=== PATIENT | male | born 1955 | race Caucasian/White ===

== ENCOUNTER → 2017-04-25 | Outpatient (CLI) | payer BC ==
--- NOTE | 2017-04-25 12:12 | DIAGNOSTIC IMAGING REPORT ---
KUB HISTORY: 61 years-old Male N20.0 nephrolithiasis COMPARISON: PET CT 07/26/2017 TECHNIQUE: KUB radiograph FINDINGS: 4 mm calcification in the region of the left upper abdomen is compatible with nonspecific calcification of the lateral limb left adrenal gland seen on comparison PET CT. No definite nephrolithiasis identified. No calculi are seen along the course of either ureter. The bowel gas pattern is nonobstructive. There is no fracture. IMPRESSION: 1. No renal or ureteral calculi. 2. 4 mm calcification of the left adrenal gland again seen. The above report was generated using voice recognition software. It may contain grammatical, syntax or spelling errors. Electronically signed by: Nathan Zavala M.D. 04/25/2017 12:10 PM Dictated Date/Time: 04/25/2017 12:08 PM
== END | disposition home or self-care (01) ==
LOC: C.RAD 11:20
PROVIDERS: ATTEND Urology
DX: E27.49 Other adrenocortical insufficiency (principal)

== ENCOUNTER 2023-04-11 21:16 | Inpatient (IN) ==
[2023-04-11] MEDS ORDERED: NITROGLYCERIN 2% OINTMENT 30GM TUBE EXT ONE (22:05)
[2023-04-11] MEDS ORDERED: ASPIRIN 81 MG CHEW PO STA (22:05)
[2023-04-11] MEDS ORDERED: SODIUM CHLORIDE 0.9% 1000ML 1,000 ML IV SCH (22:15)
[2023-04-11 22:19] LABS: Basophils # (auto) 0.04 K/uL (0-0.2); Basophils % (auto) 0.5 %; Eosinophils # (auto) 0.08 K/uL (0-0.50); Hematocrit (blood only) 42.7 % (42.0-52.0); Hemoglobin 14.7 g/dl (14.0-18.0); Immature Granulocytes # (auto) 0.02 K/uL (0.01-0.20); Immature Granulocytes % (auto) 0.3 %; Lymphocytes # (auto) 1.51 K/uL (1.2-3.4); Lymphocytes % (auto) 19.3 %; Mean Corpuscular Hemoglobin 29.6 pg (25.0-34.0); Mean Corpuscular Hgb Conc 34.4 g/dL (32.0-36.0); Mean Corpuscular Volume 85.9 fL (80.0-100.0); Monocytes # (auto) 0.82 K/uL (0.11-0.59); Monocytes % (auto) 10.5 %; Neutrophils # (auto) 5.35 K/uL (1.40-6.50); Neutrophils % (auto) 68.4 %; Platelet Count 257 K/uL (130-400); RDW Coefficient of Variation 12.6 % (11.5-14.5); RDW Standard Deviation 38.9 fL (36.4-46.3); Red Blood Count 4.97 M/uL (4.70-6.10); White Blood Count 7.82 K/ul (4.8-10.8)
[2023-04-11 22:33] LABS: Prothrombin Time 10.6 Seconds (9.0-12.0)
[2023-04-11 22:46] LABS: Albumin Globulin Ratio 1.4 (0.9-2); Albumin Level 4.3 gm/dl (3.4-5.0); BUN Creatinine Ratio 17.3 (10-20); Bilirubin,Total 0.5 mg/dl (0.2-1.0); Calcium 9.4 mg/dl (8.6-10.3); Creatinine Clr Calc Pharmacy 76.1 ml/min; Est GFR (African American) 80.6 ml/min; Est GFR (Non-African American) 69.6 ml/min; Potassium 3.8 mmol/L (3.5-5.1); Total Protein 7.3 gm/dl (6.0-8.3)
--- NOTE | 2023-04-11 22:56 | Emergency Department Note ---
History of Present Illness General Chief complaint: Chest Pain Stated complaint: CHEST PRESSURE/DISCOMFORT,CLAMMY Time Seen by Provider: 04/11/23 21:54 History of Present Illness Maximum Pain Intensity: 2 This is a 67-year-old male presenting to the emergency department for evaluation of central chest pressure and clamminess for the past several hours. Patient may have had some waxing and waning symptoms over the past few days, but symptoms worsened tonight while he was outside with his . Patient has never had this happen before. There is a family history of early coronary artery disease. Patient recently had a kidney stone that required surgical removal. He seems to be recovering from this well. He did take Gaviscon at home without any improvement of symptoms. His discomfort is currently rated a 3/10. He does not endorse any back pain, neck pain, head pain, or shortness of breath. No recent travel history as he and his are expecting a new grandbaby this we ek. Patient has not had fevers or chills. Home Medications Medication Instructions Recorded Confirmed Type atorvastatin 10 mg tablet 10 mg PO QPM #90 tabs 02/02/23 04/11/23 Rx amlodipine 5 mg tablet 5 mg PO HS 03/28/23 04/11/23 History phenazopyridine 200 mg tablet 200 mg PO Q8H PRN pain #10 tabs 04/04/23 04/11/23 Rx (Pyridium) tamsulosin 0.4 mg capsule 0.4 mg PO HS #30 caps 04/04/23 04/11/23 Rx Allergies Allergy/AdvReac Type Severity Reaction Status Date / Time No Known Allergies Allergy Verified 04/11/23 22:11 Past Med/Surg History Medical History Atherosclerosis of coronary artery on CT 02/2023 Elevated lipoprotein(a) Hepatic steatosis History of kidney stones Hypercholesteremia Left ear hearing loss Obesity (BMI 30.0-34.9) Primary hypertension Surgical History History of colonoscopy with polypectomy last 05/2021 History of ear surgery left History of lithotripsy Family History Father Myocardial infarction, Onset Age: 55 Other Colorectal cancer No family history of adverse response to anesthesia Denies family history of Ovarian cancer Prostate cancer Breast cancer Social History Smoking Status: Never smoker Second Hand Exposure: No; Do You Dip or Chew Tobacco: Yes (chews (advised NPO)); Hx Alcohol Use: Yes Hx Substance Use: No Preferred Language: Kosovan Communication Ability: Effective Visual Impairment: No Limitations Hearing Ability: Normal Motion Picture Scene Builder Required: No Beliefs That Will Affect Care: None Current Living Situation: Spouse Feels Safe at Home: Yes Seatbelt Use: always Assistive Devices: Glasses Review of Systems A total of 10 systems reviewed and were otherwise negative Physical Exam Vital Signs Vital Signs - 24 hr 04/11/23 21:20 04/11/23 21:41 04/11/23 21:42 Temperature 36.7 C Temperature Source Temporal Artery Scan Pulse Rate 88 Pulse Rate [Bilateral Apical] 86 Pulse Rhythm Regular Pulse Strength Normal Respiratory Rate 18 20 Respiratory Effort / Characteristics Non-Labored Spontaneous Non-Labored Respiratory Depth Normal Normal Respiratory Pattern Regular Blood Pressure 158/98 H Blood Pressure [Left Arm] 176/101 H Blood Pressure Mean 118 Blood Pressure Mean [Left Arm] 126 Blood Pressure Position Sitting Pulse Oximetry 97 99 96 Oxygen Delivery Method Room Air Room Air Room Air Sepsis Recent Fever Within 48 Hours No Sepsis New/Unexplained Change in Mental Status N/A Sepsis Action Taken by Nursing No Action Required 04/11/23 21:28 04/11/23 22:31 Temperature Temperature Source Pulse Rate 80 Pulse Rate [Bilateral Apical] 72 Pulse Rhythm Pulse Strength Respiratory Rate 20 Respiratory Effort / Characteristics Non-Labored Respiratory Depth Respiratory Pattern Blood Pressure Blood Pressure [Left Arm] 175/93 H Blood Pressure Mean Blood Pressure Mean [Left Arm] 120 Blood Pressure Position Pulse Oximetry 96 Oxygen Delivery Method Room Air Sepsis Recent Fever Within 48 Hours Sepsis New/Unexplained Change in Mental Status Sepsis Action Taken by Nursing VITALS: Vitals are noted on the nurse's note and reviewed by myself. Vital signs stable. GENERAL: Well-developed, well-nourished, white male, who is in no acute distress and resting comfortably. Patient is cooperative with the examination. HEAD: Normocephalic atraumatic. NECK: Supple without nuchal rigidity. No lymphadenopathy. No thyromegaly. Cervical spine is nontender. HEART: Regular rate and rhythm without murmurs gallops or rubs. LUNGS: Clear to auscultation bilaterally without wheezes, rales or rhonchi. No retractions or accessory muscle use. ABDOMEN: Positive normal bowel sounds x 4. Soft, nontender, without masses or organomegaly. No guarding or rebound tenderness. MUSCULOSKELETAL: No muscle atrophy, erythema, or edema noted. Full range of motion in all extremities. Course Administered Medications Heparin Sodium/Dextrose (Heparin Sodium/Dextrose) 25,000 units in 500 mls @ 20 mls/hr IV .Q24H AUDI; Protocol Stop: 05/12/23 00:29 Last Admin: 04/12/23 00:49 Dose: 1,000 units/hr, 20 mls/hr Documented By: SHAHID Co-signed By: Nitroglycerin (Nitroglycerin 2% Ointment 30gm Tube) 1.5 inch EXT Q6 AUDI Stop: 05/12/23 00:29 Last Admin: 04/12/23 00:50 Dose: 1.5 inch Documented By: SHAHID Discontinued Medications Aspirin (Aspirin 81 Mg Chew) 324 mg PO NOW STA Stop: 04/11/23 22:06 Last Admin: 04/11/23 22:15 Dose: 324 mg Documented By: YELENA Heparin Sodium (Porcine) (Heparin Sod (Porcine) 1000 Unit/Ml) 4,000 units IV NOW ONE Stop: 04/12/23 00:23 Last Admin: 04/12/23 00:48 Dose: 4,000 units Documented By: SHAHID Co-signed By: Heparin Sodium/Dextrose (Heparin Iv Adult Wt-Based Low-Dose With Bolus Protocol) 1 each IV NOW STA; Protocol Stop: 04/12/23 00:08 Last Admin: 04/12/23 00:51 Dose: 1 each Documented By: SHAHID Sodium Chloride (Nss 1000ml) 1,000 mls @ 999 mls/hr IV .Q1H1M AUDI Stop: 04/11/23 23:15 Last Admin: 04/11/23 22:19 Dose: 999 mls/hr Documented By: YELENA Morphine Sulfate (Morphine Sulfate 2 Mg/Ml Carp) 2 mg IV NOW STA Stop: 04/11/23 23:10 Last Admin: 04/12/23 00:49 Dose: 2 mg Documented By: SHAHID Nitroglycerin (Nitroglycerin 2% Ointment 30gm Tube) 1 inch EXT NOW ONE Stop: 04/11/23 22:06 Last Admin: 04/11/23 22:15 Dose: 1 inch Documented By: ML Critical Care Time I have personally spent greater than 30 minutes of critical care time in the direct management of this patient. This includes bedside care, interpretation of diagnostic studies, and testing, discussion with consultants, patient, and family members, and other required patient management activities. This 30 minutes is in excess of all separately billable procedures. Medical Decision Making Differential Diagnosis Differential diagnosis includes, but is not limited to: Myocardial infarction, dysrhythmia, pericarditis, pneumothorax, aortic aneurysm/dissection, DVT/PE, anxiety, GERD, PUD, electrolyte imbalance, thyroid disorder, pneumonia, bronchitis, pancreatitis, and others Laboratory Data 04/11/23 21:38 04/11/23 21:38 Lab Results 04/11/23 04/11/23 04/11/23 Range/Units 21:38 21:38 21:38 WBC 7.82 (4.8-10.8) K/ul RBC 4.97 (4.70-6.10) M/uL Hgb 14.7 (14.0-18.0) g/dl Hct 42.7 (42.0-52.0) % MCV 85.9 (80.0-100.0) fL MCH 29.6 (25.0-34.0) pg MCHC 34.4 (32.0-36.0) g/dL RDW Std Deviation 38.9 (36.4-46.3) fL RDW Coeff of Venkatesh 12.6 (11.5-14.5) % Plt Count 257 (130-400) K/uL MPV 10.0 (9.4-12.4) fL Immature Gran % (Auto) 0.3 % Neut % (Auto) 68.4 % Lymph % (Auto) 19.3 % [place] % (Auto) 10.5 % Eos % (Auto) 1.0 % Baso % (Auto) 0.5 % Neut # (Auto) 5.35 (1.40-6.50) K/uL Lymph # (Auto) 1.51 (1.2-3.4) K/uL [place] # (Auto) 0.82 H (0.11-0.59) K/uL Eos # (Auto) 0.08 (0-0.50) K/uL Baso # (Auto) 0.04 (0-0.2) K/uL Immature Gran # (Auto) 0.02 (0.01-0.20) K/uL PT 10.6 (9.0-12.0) Seconds INR 1.0 (0.9-1.1) APTT 29.0 (21.0-31.0) Seconds PTT Ratio 1.0 Sodium 140 (136-145) mmol/L Potassium 3.8 (3.5-5.1) mmol/L Chloride 106 (98-107) mmol/L Carbon Dioxide 25 (21-32) mmol/L Anion Gap 9 (3-11) BUN 19 (6-23) mg/dl Creatinine 1.10 (0.6-1.4) mg/dl Est Cr Clr Drug Dosing 76.1 ml/min Est GFR ( Amer) 80.6 ml/min Est GFR (Non-Af Amer) 69.6 ml/min BUN/Creatinine Ratio 17.3 (10-20) Glucose 107 H (70-99(Fasting)) mg/dl Calcium 9.4 (8.6-10.3) mg/dl Total Bilirubin 0.5 (0.2-1.0) mg/dl AST 24 (13-39) U/L ALT 33 (7-52) U/L Alkaline Phosphatase 83 (34-104) U/L Troponin I High Sens 589.8 H* (0-20) pg/ml Total Protein 7.3 (6.0-8.3) gm/dl Albumin 4.3 (3.4-5.0) gm/dl Globulin 3.0 (2.5-4.0) gm/dl Albumin/Globulin Ratio 1.4 (0.9-2) Lipase 56 (11-82) U/L SARS-CoV-2, RNA, NAAT (NEGATIVE) 04/11/23 Range/Units 22:21 WBC (4.8-10.8) K/ul RBC (4.70-6.10) M/uL Hgb (14.0-18.0) g/dl Hct (42.0-52.0) % MCV (80.0-100.0) fL MCH (25.0-34.0) pg MCHC (32.0-36.0) g/dL RDW Std Deviation (36.4-46.3) fL RDW Coeff of Venkatesh (11.5-14.5) % Plt Count (130-400) K/uL MPV (9.4-12.4) fL Immature Gran % (Auto) % Neut % (Auto) % Lymph % (Auto) % [place] % (Auto) % Eos % (Auto) % Baso % (Auto) % Neut # (Auto) (1.40-6.50) K/uL Lymph # (Auto) (1.2-3.4) K/uL [place] # (Auto) (0.11-0.59) K/uL Eos # (Auto) (0-0.50) K/uL Baso # (Auto) (0-0.2) K/uL Immature Gran # (Auto) (0.01-0.20) K/uL PT (9.0-12.0) Seconds INR (0.9-1.1) APTT (21.0-31.0) Seconds PTT Ratio Sodium (136-145) mmol/L Potassium (3.5-5.1) mmol/L Chloride (98-107) mmol/L Carbon Dioxide (21-32) mmol/L Anion Gap (3-11) BUN (6-23) mg/dl Creatinine (0.6-1.4) mg/dl Est Cr Clr Drug Dosing ml/min Est GFR ( Amer) ml/min Est GFR (Non-Af Amer) ml/min BUN/Creatinine Ratio (10-20) Glucose (70-99(Fasting)) mg/dl Calcium (8.6-10.3) mg/dl Total Bilirubin (0.2-1.0) mg/dl AST (13-39) U/L ALT (7-52) U/L Alkaline Phosphatase (34-104) U/L Troponin I High Sens (0-20) pg/ml Total Protein (6.0-8.3) gm/dl Albumin (3.4-5.0) gm/dl Globulin (2.5-4.0) gm/dl Albumin/Globulin Ratio (0.9-2) Lipase (11-82) U/L SARS-CoV-2, RNA, NAAT NEGATIVE (NEGATIVE) ECG Data Additional Comments: EKG#1: Normal sinus rhythm @[address] & T wave abnormality, consider inferior ischemia ST & T wave abnormality, consider anterolateral ischemia When compared with ECG of 25-MAR-2023 08:48, Significant changes have occurred EKG#2 Normal sinus rhythm @[address] & T wave abnormality, consider anterolateral ischemia When compared with ECG of 11-APR-2023 21:28, Criteria for Septal infarct are no longer Present ST no longer depressed in Inferior leads ST no longer depressed in Anterolateral leads T wave inversion no longer evident in Inferior leads T wave inversion less evident in Lateral leads MDM Narrative Physical exam and history were performed. Nursing notes, EMR, and Medication List were personally reviewed. No social concerns were identified as barriers to patients care. Patient appears to have chest heaviness and clamminess bringing him to the ER. EKG was performed and appears remarkably different from EKG performed a few weeks ago. Patient's story is quite concerning for cardiac event. IV access was established and labs were obtained. Patient was given aspirin and Nitropaste was applied. She was gently hydrated with normal saline. Case was discussed with my attending. An order was placed for continuous cardiac monitoring. The monitor shows a rate of 72 with normal sinus rhythm. Patient's blood work is as above and was reviewed. He does not have a significantly elevated white blood cell count, gross anemia, bandemia, or significant electrolyte imbalance. Lipase and transaminases are not diagnostic. Patient does have an elevated troponin greater than 500. Repeat EKG was performed roughly 25 minutes after placement of Nitropaste and administration of aspirin. EKG does seem significantly improved after aspirin and Nitropaste. I did update the patient at bedside regarding his findings and voiced my concern for cardiac event. He does not seem to have any contraindications for heparinization, and heparin was ordered. Case was discussed with on-call hospitalist team who agreed to evaluate the patient here in the ER. Please see their dictation for further patient course, plan, and disposition. The chart was completed utilizing [email or web address] Speech Voice Recognition Software. Grammatical errors, random word insertions, pronoun errors, and incomplete sentences are an occasional consequence of this system due to software limita tions, ambient noise, and hardware issues. Any formal questions or concerns about the content, text, or information contained within the body of this dictation should be directly addressed to the provider for clarification. . Impression & Plan NSTEMI (non-ST elevated myocardial infarction) Discharge Plan Visit Data Chief Complaint: Chest Pain Stated Complaint: CHEST PRESSURE/DISCOMFORT,CLAMMY ED Provider: Chang Jimenez ED Midlevel Provider: Omero Brown Discharge Problem: NSTEMI (non-ST elevated myocardial infarction) Discharge Instructions Interventions: ED Discharge Assessment Last Done: 04/12/23 00:46
[2023-04-11] MEDS ORDERED: Heparin IV Adult Wt-Based Standard WITH Bolus Protocol IV STA (23:08)
[2023-04-11 23:09] LABS: Troponin I High Sensitivity 589.8 pg/ml (0-20)
[2023-04-11] MEDS ORDERED: MoRPHine SULFATE 2 MG/ML CARP IV STA (23:09)
[2023-04-11] MEDS ORDERED: HEPARIN SOD (PORCINE) 1000 UNIT/ML IV ONE (23:23)
--- NOTE | 2023-04-11 23:26 | History & Physical Report ---
Date of Service April 11, 2023 Assessment & Plan (1) NSTEMI (non-ST elevated myocardial infarction): Plan: Bernabe is a 67-year-old male with a past medical history of hyperlipidemia, hypertension, BMI 31.8, recent cystoscopy and laser destruction of left ureteral stone with basket retrieval 04/04/2023, early family history of CAD who presented to the ER for intermittent and recurrent central chest pressure with clamminess/sweating. Patient has had intermittent chest pain over the last several days, this afternoon pain significantly worsened with a large amount of sweating which prompted him to be seen in the ER. Admitted for NSTEMI. NSTEMI 3/10 pain with intermittent angina in the prior week. Worsened with a glass of wine evening of admission and with diaphoresis prompting him to be seen in the ER. At time of evaluation pain is "almost completely gone" post nitro and morphine EKG initially with inferior/anterolateral depressions, depressions did improve following nitro and fluids. Initial troponin 589.8 Received full dose aspirin while in ER. Continued on Nitropaste Patient heparinized for NSTEMI Cardiology consulted Echo pending Troponin trended Atorvastatin increased to 40 mg Primary hypertension Patient on home amlodipine with general BP less than 130/80. Switch to metoprolol to tartrate on admission. Hepatic steatosis Noted, patient alcohol intake reduced as outpatient and with active weight loss efforts Ureterolithiasis Improved following lithotripsy/basket retrieval 04/04/2023 DVT prophylaxis: Heparinized CODE STATUS: Full code Disposition: PCU Diet: N.p.o. (2) Atherosclerosis of coronary artery: (3) Hepatic steatosis: (4) Hypercholesteremia: (5) Primary hypertension: (6) Obesity (BMI 30.0-34.9): History of Present Illness Primary Care Provider: Kathy Beach MD Bernabe is a 67-year-old male with a past medical history of hyperlipidemia, hypertension, BMI 31.8, recent cystoscopy and laser destruction of left ureteral stone with basket retrieval 04/04/2023, early family history of CAD who presented to the ER for intermittent and recurrent central chest pressure with clamminess/sweating. Patient has had intermittent chest pain over the last several days, this afternoon pain significantly worsened with a large amount of sweating which prompted him to be seen in the ER. On ER evaluation discomfort 3/10 without back pain or lightheadedness/dizziness. Initial EKG with inferior lateral ST depressions which improved following nitro. Initial troponin is elevated at 589. Chest pain is improved following nitro and morphine administration. Jose reports he had kidney stones taken out last tuesday. He reports he went through a bunch of tests beforehand and 'felt OK'. Reports he has had kideny stones before 'but this one hurt and knocked the shit out of me.' After the last 3-4 days has had intermittent substernal chest pain. Went away with rest. Not really sure why the pain would come on. Did not note any association with exercise or going up stairs, seemed to come and go on it sown. No shortness of breath with pain, but did have sweating episodes with it tonight (no sweating with it prior). Today they were sitting at the hike and after half a glass of wine has bad pain in his chest and was very sweaty/clammy. Given worsened symptoms and sweating, and early family history, came to the ER for evaluation. Prior to this week was able to to walk and go up stairs without chest pain. No anginal symptoms up until this past week. At tiem of bedside evaluation no shortness of breath. chest pain 'just almost completely gone.' No history of heart disease. No hx DM. Father with CAD. Passed at age 56, started having heart problems ~age 52. No history of DM, was a heavy smoker. No other FHx heart disease Medical History: Reviewed Medications: Reviewed Surgical History: Reviewed Family history: Reviewed Allergies: Reviewed Social History: Chews tobacco, 1 can per 2 days. No cigarette use. Etoh 1-2 glass a night at least. Went ETOH free for a few days last week before the kidney stone, no withdrawal Code Status: Full Allergies Allergy/AdvReac Type Severity Reaction Status Date / Time No Known Allergies Allergy Verified 04/11/23 22:11 Home Medications Medication Instructions Recorded Confirmed Type atorvastatin 10 mg tablet 10 mg PO QPM #90 tabs 02/02/23 04/11/23 Rx amlodipine 5 mg tablet 5 mg PO HS 03/28/23 04/11/23 History phenazopyridine 200 mg tablet 200 mg PO Q8H PRN pain #10 tabs 04/04/23 04/11/23 Rx (Pyridium) tamsulosin 0.4 mg capsule 0.4 mg PO HS #30 caps 04/04/23 04/11/23 Rx Past Med/Surg History Medical History Atherosclerosis of coronary artery on CT 02/2023 Elevated lipoprotein(a) Hepatic steatosis History of kidney stones Hypercholesteremia Left ear hearing loss Obesity (BMI 30.0-34.9) Primary hypertension Surgical History History of colonoscopy with polypectomy last 05/2021 History of ear surgery left History of lithotripsy Family History Father Myocardial infarction, Onset Age: 55 Other Colorectal cancer No family history of adverse response to anesthesia Denies family history of Ovarian cancer Prostate cancer Breast cancer Social History Smoking Status: Never smoker Second Hand Exposure: No; Do You Dip or Chew Tobacco: Yes (chews (advised NPO)); Hx Alcohol Use: Yes Hx Substance Use: No Preferred Language: Finnish Communication Ability: Effective Visual Impairment: No Limitations Hearing Ability: Normal Bottle Labeler Required: No Beliefs That Will Affect Care: None Current Living Situation: Spouse Feels Safe at Home: Yes Seatbelt Use: always Assistive Devices: Glasses Review of Systems Review of Systems: All systems reviewed & are unremarkable except as noted in HPI & below Physical Exam Physical Exam: General: A&Ox3. NAD. Cooperative. HEENT: Atraumatic, normocephalic. Vision/hearing intact. PERLAA. Pulm: CTAB A&P. -wheezes, -rales, -rhonchi. Symmetrical chest rise. No increased work of breathing. No respiratory distress. No CP on palpation. Cardiac: RRR, -mrg. Radial pulses intact and symmetrical. no JVD. Abdominal: Nontender, nondistended, soft. BS present. Ext: No edema. Warm, dry. Sensation/strength intact in all 4 extremities and symmetrical. Results & Data Results & Data Vital Signs (Past 12 Hours) Vital Signs Temp Pulse Pulse Resp BP BP Pulse Ox 04/11/23 22:31 72 20 175/93 H 96 04/11/23 21:28 80 04/11/23 21:42 86 20 176/101 H 96 04/11/23 21:41 99 04/11/23 21:20 36.7 C 88 18 158/98 H 97 O2 Del Method 04/11/23 22:31 Room Air 04/11/23 21:28 04/11/23 21:42 Room Air 04/11/23 21:41 Room Air 04/11/23 21:20 Room Air PG Care Time/CCT Total # of Minutes Spent Total Time Spent with Patient: Total time spent is greater than 50% in coordination of care (as documented) at patient's floor/unit and/or counseling patient: Coding Level of Care Code 83689 INT INP/OBS CARE 375MIN Diagnoses NSTEMI (non-ST elevated myocardial infarction) I21.4 Atherosclerosis of coronary artery I25.10 Hepatic steatosis K76.0 Hypercholesteremia E78.00 Primary hypertension I10 Obesity (BMI 30.0-34.9) E66.9
[2023-04-11] MEDS ORDERED: HEPARIN SODIUM/DEXTROSE 25,000 UNITS/500 ML BAG IV SCH (23:30)
[2023-04-12] MEDS ORDERED: Heparin IV Adult Wt-Based Low-Dose WITH Bolus Protocol IV STA (00:07)
[2023-04-12] MEDS ORDERED: HEPARIN SOD (PORCINE) 1000 UNIT/ML IV ONE ×2 (00:15→00:22)
[2023-04-12] MEDS ORDERED: HEPARIN SODIUM/DEXTROSE 25,000 UNITS/500 ML BAG IV SCH (00:30)
[2023-04-12] MEDS ORDERED: MoRPHine SULFATE 2 MG/ML CARP IV PRN (00:39)
[2023-04-12] MEDS ORDERED: POLYETHYLENE (MIRALAX) 17 GM PACK PO PRN (00:46)
[2023-04-12] MEDS ORDERED: NITROGLYCERIN SL 0.4 MG/TAB TAB SL PRN (00:46)
[2023-04-12] MEDS ORDERED: ACETAMINOPHEN 325 MG TAB PO PRN (00:46)
[2023-04-12] MEDS: NITROGLYCERIN 2% OINTMENT 30GM TUBE EXT SCH ×4 (00:50→18:22)
--- NOTE | 2023-04-12 06:59 | XRay Report ---
XR chest 1V portable CLINICAL HISTORY: Chest pain, nonspecific COMPARISON STUDY: Chest radiograph March 25, 2023. Chest CT March 04, 2023. FINDINGS: Lung volumes are normal. Lungs are clear. There is no pneumothorax or pleural effusion. Car diomegaly is unchanged. Mediastinal contours are normal. There is no evidence for pulmonary edema. IMPRESSION: No acute cardiopulmonary findings. No change in appearance of the chest. ACT 112: Negative or not required by law. Electronically signed by: Nakul Bates M.D. 04/12/2023 6:57 AM
[2023-04-12 07:26] LABS: Basophils # (auto) 0.05 K/uL (0-0.2); Basophils % (auto) 0.7 %; Eosinophils # (auto) 0.11 K/uL (0-0.50); Eosinophils % (auto) 1.6 %; Hematocrit (blood only) 38.3 % (42.0-52.0); Hemoglobin 13.4 g/dl (14.0-18.0); Immature Granulocytes # (auto) 0.02 K/uL (0.01-0.20); Immature Granulocytes % (auto) 0.3 %; Lymphocytes % (auto) 25.3 %; Mean Corpuscular Hemoglobin 29.8 pg (25.0-34.0); Mean Corpuscular Volume 85.3 fL (80.0-100.0); Mean Platelet Volume 9.6 fL (9.4-12.4); Monocytes # (auto) 0.66 K/uL (0.11-0.59); Monocytes % (auto) 9.8 %; Neutrophils # (auto) 4.17 K/uL (1.40-6.50); Neutrophils % (auto) 62.3 %; Platelet Count 226 K/uL (130-400); RDW Coefficient of Variation 12.7 % (11.5-14.5); RDW Standard Deviation 39.6 fL (36.4-46.3); Red Blood Count 4.49 M/uL (4.70-6.10); White Blood Count 6.71 K/ul (4.8-10.8)
[2023-04-12 07:46] LABS: Albumin Globulin Ratio 1.5 (0.9-2); Albumin Level 3.5 gm/dl (3.4-5.0); BUN Creatinine Ratio 18.1 (10-20); Bilirubin,Total 0.4 mg/dl (0.2-1.0); Calcium 8.9 mg/dl (8.6-10.3); Creatinine Clr Calc Pharmacy 89.1 ml/min; Est GFR (African American) 97.5 ml/min; Est GFR (Non-African American) 84.2 ml/min; Globulin 2.4 gm/dl (2.5-4.0); Potassium 3.7 mmol/L (3.5-5.1); Total Protein 5.9 gm/dl (6.0-8.3)
--- NOTE | 2023-04-12 07:49 | Hospitalist Progress Note ---
Date of Service April 12, 2023 Assessment & Plan (1) NSTEMI (non-ST elevated myocardial infarction): Plan: Bernabe is a 67-year-old male with a past medical history of hyperlipidemia, hypertension, BMI 31.8, recent cystoscopy and laser destruction of left ureteral stone with basket retrieval 04/04/2023, early family history of CAD who presented to the ER for intermittent and recurrent central chest pressure with clamminess/sweating. Patient has had intermittent chest pain over the last several days, this afternoon pain significantly worsened with diaphoresis which prompted him to be seen in the ER. Admitted for NSTEMI. NSTEMI -11/26 pain with intermittent angina in the prior week. Worsened with a glass of wine evening of admission and with diaphoresis prompting him to be seen in the ER. At time of evaluation pain is "almost completely gone" post nitro and morphine. -EKG initially with inferior/anterolateral depressions, improved with nitro and fluids. -Initial troponin 589.8. Increased to 1481.6, then 5702.6 on serial labs. -S/p aspirin 324 mg x 1 while in ER. Continued on Nitropaste. Started on heparin. -A.m. echocardiogram ordered: Normal LV size, systolic function. EF = 55-60%. Small area of mid and distal anterior LV wall akinesis. -Cardiology consulted: PCI performed this afternoon for placement of drug- eluting stent. * Atorvastatin 40 mg * Aspirin 81 mg every morning * Metoprolol succinate 25 mg every morning * Nitro-Derm patch every 6 hours; SL nitroglycerin 0.4 mg Q5M as needed * Brilinta 90 mg p.o. twice daily HTN -Chronic; managed on amlodipine with home BP mostly <130/80. * Home amlodipine stopped. * Awaiting cardiology recommendations but will likely initiate ARB (losartan 25 mg). * Discharge home with either telmisartan or olmesartan (longer half-life). Hepatic steatosis -Noted; managed outpatient with lifestyle changes (limit alcohol intake, active weight loss efforts) -Fib 4 score: 1.71 points (advanced fibrosis excluded; Ama stage II-III) * LFT's, transaminases at goal currently. No need to trend. Ureterolithiasis -Improved following lithotripsy/basket retrieval 04/04/2023 * Continue to monitor for renal colic. Code: Full code Dispo: PCU FEN/GI: Heart healthy DVT Prophylaxis: None (s/p cath) PT/OT: No Consults: Cardiology Case Management: No (2) Atherosclerosis of coronary artery: (3) Hepatic steatosis: (4) Hypercholesteremia: (5) Primary hypertension: (6) Obesity (BMI 30.0-34.9): Admission and Anticipated Discharge Date Admission Date: April 11, 2023 Supervising Physician Co-Signing Physician Notes Resident Physician Supervision Note: I independently interviewed and examined the patient and verified the contreras history and physical, reviewed labs and image studies and agree with resident findings and care plan. Subjective Patient is resting comfortably in ER bed on arrival this morning. He denies chest pain, shortness of breath, abdominal pain, or pedal edema. Per patient, captain assistant has yet to stop in to see him. He has no questions or concerns at this time. Review of Systems Review of Systems: All systems reviewed & are unremarkable except as noted in HPI & below Physical Exam Physical Exam: General: No acute distress HEENT: PERRLA. Normal conjunctiva, anicteric sclera. Oropharynx normal. Respiratory: Normal respiratory effort, CTABL. Cardiovascular: Bradycardic. Regular rhythm. Without murmurs, gallops, or rubs. No pedal edema. GI: Soft, nondistended abdomen. Nontender x4 quadrants Neuro: Alert and oriented x3. Results & Data Results & Data Vital Signs (Past 12 Hours) Vital Signs Temp Pulse Pulse Resp BP BP Pulse Ox 04/12/23 07:06 66 04/12/23 06:30 90 20 122/81 94 04/12/23 05:00 54 L 12 96 04/12/23 04:30 61 16 91 04/12/23 04:27 57 L 12 143/78 H 99 04/12/23 04:49 48 L 04/12/23 03:30 53 L 16 143/78 H 95 04/12/23 03:00 58 L 16 95 04/12/23 02:00 63 17 94 04/12/23 00:48 70 18 131/76 98 04/12/23 00:30 84 14 96 04/12/23 00:00 72 12 97 04/11/23 23:00 77 16 95 04/11/23 22:31 72 20 175/93 H 96 04/11/23 21:28 80 04/11/23 21:42 86 20 176/101 H 96 04/11/23 21:41 99 04/11/23 21:20 36.7 C 88 18 158/98 H 97 O2 Del Method 04/12/23 07:06 04/12/23 06:30 04/12/23 05:00 04/12/23 04:30 04/12/23 04:27 04/12/23 04:49 04/12/23 03:30 04/12/23 03:00 04/12/23 02:00 04/12/23 00:48 04/12/23 00:30 04/12/23 00:00 04/11/23 23:00 04/11/23 22:31 Room Air 04/11/23 21:28 04/11/23 21:42 Room Air 04/11/23 21:41 Room Air 04/11/23 21:20 Room Air Diagnostic Findings Laboratory Results WBC 6.71 K/ul (4.8-10.8) 04/12/23 07:04 RBC 4.49 M/uL (4.70-6.10) L 04/12/23 07:04 Hgb 13.4 g/dl (14.0-18.0) L 04/12/23 07:04 Hct 38.3 % (42.0-52.0) L 04/12/23 07:04 MCV 85.3 fL (80.0-100.0) 04/12/23 07:04 MCH 29.8 pg (25.0-34.0) 04/12/23 07:04 MCHC 35.0 g/dL (32.0-36.0) 04/12/23 07:04 RDW Std Deviation 39.6 fL (36.4-46.3) 04/12/23 07:04 RDW Coeff of Venkatesh 12.7 % (11.5-14.5) 04/12/23 07:04 Plt Count 226 K/uL (130-400) 04/12/23 07:04 MPV 9.6 fL (9.4-12.4) 04/12/23 07:04 Immature Gran % (Auto) 0.3 % 04/12/23 07:04 Neut % (Auto) 62.3 % 04/12/23 07:04 Lymph % (Auto) 25.3 % 04/12/23 07:04 [place] % (Auto) 9.8 % 04/12/23 07:04 Eos % (Auto) 1.6 % 04/12/23 07:04 Baso % (Auto) 0.7 % 04/12/23 07:04 Neut # (Auto) 4.17 K/uL (1.40-6.50) 04/12/23 07:04 Lymph # (Auto) 1.70 K/uL (1.2-3.4) 04/12/23 07:04 [place] # (Auto) 0.66 K/uL (0.11-0.59) H 04/12/23 07:04 Eos # (Auto) 0.11 K/uL (0-0.50) 04/12/23 07:04 Baso # (Auto) 0.05 K/uL (0-0.2) 04/12/23 07:04 Immature Gran # (Auto) 0.02 K/uL (0.01-0.20) 04/12/23 07:04 PT 10.6 Seconds (9.0-12.0) 04/11/23 21:38 INR 1.0 (0.9-1.1) 04/11/23 21:38 APTT 44.2 Seconds (21.0-31.0) H* 04/12/23 07:04 PTT Ratio 1.6 04/12/23 07:04 Activ Coag Time Kaolin 221 SECONDS (94-140) H 04/12/23 11:33 Sodium 141 mmol/L (136-145) 04/12/23 07:04 Potassium 3.7 mmol/L (3.5-5.1) 04/12/23 07:04 Chloride 108 mmol/L (98-107) H 04/12/23 07:04 Carbon Dioxide 29 mmol/L (21-32) 04/12/23 07:04 Anion Gap 4 (3-11) 04/12/23 07:04 BUN 17 mg/dl (6-23) 04/12/23 07:04 Creatinine 0.94 mg/dl (0.6-1.4) 04/12/23 07:04 Est Cr Clr Drug Dosing 89.1 ml/min 04/12/23 07:04 Est GFR ( Amer) 97.5 ml/min 04/12/23 07:04 Est GFR (Non-Af Amer) 84.2 ml/min 04/12/23 07:04 BUN/Creatinine Ratio 18.1 (10-20) 04/12/23 07:04 Glucose 106 mg/dl (70-99(Fasting)) H 04/12/23 07:04 Calcium 8.9 mg/dl (8.6-10.3) 04/12/23 07:04 Total Bilirubin 0.4 mg/dl (0.2-1.0) 04/12/23 07:04 AST 31 U/L (13-39) 04/12/23 07:04 ALT 28 U/L (7-52) 04/12/23 07:04 Alkaline Phosphatase 67 U/L (34-104) 04/12/23 07:04 Troponin I High Sens 5702.6 pg/ml (0-20) H* D 04/12/23 07:04 Total Protein 5.9 gm/dl (6.0-8.3) L 04/12/23 07:04 Albumin 3.5 gm/dl (3.4-5.0) 04/12/23 07:04 Globulin 2.4 gm/dl (2.5-4.0) L 04/12/23 07:04 Albumin/Globulin Ratio 1.5 (0.9-2) 04/12/23 07:04 Lipase 56 U/L (11-82) 04/11/23 21:38 SARS-CoV-2, RNA, NAAT NEGATIVE (NEGATIVE) 04/11/23 22:21 Impressions Chest X-Ray 04/11/23 21:55 XR chest 1V portable CLINICAL HISTORY: Chest pain, nonspecific COMPARISON STUDY: Chest radiograph March 25, 2023. Chest CT March 04, 2023. FINDINGS: Lung volumes are normal. Lungs are clear. There is no pneumothorax or pleural effusion. Cardiomegaly is unchanged. Mediastinal contours are normal. There is no evidence for pulmonary edema. IMPRESSION: No acute cardiopulmonary findings. No change in appearance of the chest. ACT 112: Negative or not required by law. Electronically signed by: Nakul Bates M.D. 04/12/2023 6:57 AM Resident Activity Tracking Resident Involvement: Resident Care Provided Care Provided: [facility]
[2023-04-12 08:04] LABS: Partial Thromboplastin Ratio 1.6
[2023-04-12 08:06] LABS: Partial Thromboplastin Time 44.2 Seconds (21.0-31.0)
--- NOTE | 2023-04-12 08:30 | Electrocardiogram Report ---
Test Reason : Blood Pressure : / mmHG Vent. Rate : 082 BPM Atrial Rate : 082 BPM P-R Int : 168 ms QRS Dur : 066 ms QT Int : 326 ms P-R-T Axes : 007 047 205 degrees QTc Int : 380 ms Normal sinus rhythm Possible Old Septal infarct ST depression in Anterolateral leads , consider ischemia Abnormal ECG When compared with ECG of 25-MAR-2023 08:48, Otherwise Criteria for Septal infarct now present ST depression in Anterolateral leads now present Confirmed by Clark Spring ([id number]) on 04/12/2023 8:30:18 AM Referred By: REFERRED SELF Confirmed By:Clark Spring
--- NOTE | 2023-04-12 08:31 | Electrocardiogram Report ---
Test Reason : Blood Pressure : / mmHG Vent. Rate : 072 BPM Atrial Rate : 072 BPM P-R Int : 172 ms QRS Dur : 074 ms QT Int : 416 ms P-R-T Axes : 007 058 126 degrees QTc Int : 455 ms Poor data quality, interpretation may be adversely affected Normal sinus rhythm Nonspecific ST abnormality Anterolateral leads Abnormal ECG When compared with ECG of 11-APR-2023 21:28, Criteria for Septal infarct are no longer Present ST no longer depressed in Anterolateral leads Confirmed by Clark Spring ([id number]) on 04/12/2023 8:30:54 AM Referred By: REFERRED SELF Confirmed By:Clark Spring
[2023-04-12] MEDS ORDERED: METOPROLOL TARTRATE 25 MG TAB PO SCH (09:00)
--- NOTE | 2023-04-12 10:29 | Pre Anesthesia Assessment ---
Date of Service April 12, 2023 Pre Sedation Assessment Vital Signs Temp Pulse Pulse Resp BP BP Pulse Ox 04/12/23 10:02 51 L 18 134/79 99 04/12/23 09:00 52 L 15 98 04/12/23 08:41 126/71 04/12/23 08:41 58 L 12 97 04/12/23 08:30 59 L 22 98 04/12/23 08:00 59 L 18 96 04/12/23 07:30 58 L 16 97 04/12/23 07:00 53 L 17 93 04/12/23 06:33 51 L 14 96 04/12/23 06:33 122/81 04/12/23 08:28 36.9 C 56 L 16 126/71 97 04/12/23 07:06 66 04/12/23 06:30 90 20 122/81 94 04/12/23 05:00 54 L 12 96 04/12/23 04:30 61 16 91 04/12/23 04:27 57 L 12 143/78 H 99 04/12/23 04:49 48 L 04/12/23 03:30 53 L 16 143/78 H 95 04/12/23 03:00 58 L 16 95 04/12/23 02:00 63 17 94 04/12/23 00:48 70 18 131/76 98 04/12/23 00:30 84 14 96 04/12/23 00:00 72 12 97 04/11/23 23:00 77 16 95 04/11/23 22:31 72 20 175/93 H 96 04/11/23 21:28 80 04/11/23 21:42 86 20 176/101 H 96 04/11/23 21:41 99 04/11/23 21:20 36.7 C 88 18 158/98 H 97 O2 Del Method 04/12/23 10:02 Room Air 04/12/23 09:00 04/12/23 08:41 04/12/23 08:41 04/12/23 08:30 04/12/23 08:00 04/12/23 07:30 04/12/23 07:00 04/12/23 06:33 04/12/23 06:33 04/12/23 08:28 Room Air 04/12/23 07:06 04/12/23 06:30 04/12/23 05:00 04/12/23 04:30 04/12/23 04:27 04/12/23 04:49 04/12/23 03:30 04/12/23 03:00 04/12/23 02:00 04/12/23 00:48 04/12/23 00:30 04/12/23 00:00 04/11/23 23:00 04/11/23 22:31 Room Air 04/11/23 21:28 04/11/23 21:42 Room Air 04/11/23 21:41 Room Air 04/11/23 21:20 Room Air Cardiovascular RRR, no murmur, no edema Respiratory normal respiratory effort, lungs clear to auscultation Pre-Sedation Airway Assessment Smoking Status: Never smoker Hx Sleep Apnea: No Short, Thick Neck: Yes Thyromental Distance: > or= 3.5 Finger Breadths Oral Cavity: + WNL Mallampati Class: IV ASA: ASA3 NPO Status Date of Last Intake of Fluids: 04/11/23 Time of Last Intake of Fluids: 17:00 Date of Last Intake of Solid Food: 04/11/23 Time of Last Intake of Solid Foods: 17:00 Notes The planned sedation has been discussed with the patient. Informed Consent was obtained. I have identified the patient, determined the appropriateness of sedation and have assessed the patient immediately prior to the procedure. All medicine(s) and interventions are by my order.
[2023-04-12] MEDS ORDERED: HEPARIN (PORCINE) 1000 UNIT/ML 10 ML (CATH LAB USE ONLY) ONE ×2 (10:37→11:44)
[2023-04-12] MEDS ORDERED: fentaNYL citrate PF 100 MCG/2 ML VIAL ONE (10:37)
[2023-04-12] MEDS ORDERED: MIDAZOLAM HCL 1 MG/ML 2ML VIAL ONE (10:37)
[2023-04-12] MEDS ORDERED: niCARdipine HCL INJ 2.5 MG/ML 10 ML AMP ONE (10:37)
[2023-04-12] MEDS ORDERED: NITROGLYCERIN/D5W 100MCG/ML 20ML SYR ONE (10:38)
--- NOTE | 2023-04-12 10:53 | XCELERA ---
[id number] [id number]
--- NOTE | 2023-04-12 11:21 | Electrocardiogram Report ---
Test Reason : Blood Pressure : / mmHG Vent. Rate : 056 BPM Atrial Rate : 056 BPM P-R Int : 186 ms QRS Dur : 074 ms QT Int : 474 ms P-R-T Axes : 031 064 138 degrees QTc Int : 457 ms Sinus bradycardia T-wave inversion in Anterolateral leads , consider ischemia Abnormal ECG When compared with ECG of 11-APR-2023 22:40, No significant change was found Confirmed by Clark Spring ([id number]) on 04/12/2023 11:21:11 AM Referred By: REFERRED SELF Confirmed By:Clark Spring
[2023-04-12] MEDS ORDERED: TICAGRELOR 90 MG TAB ONE (11:35)
--- NOTE | 2023-04-12 11:53 | Post Anesthesia Assessment ---
Date of Service April 12, 2023 Post Sedation Assessment Vital Signs Temp Pulse Pulse Resp BP BP Pulse Ox 04/12/23 11:45 64 20 134/79 99 04/12/23 10:02 51 L 18 134/79 99 04/12/23 09:00 52 L 15 98 04/12/23 08:41 126/71 04/12/23 08:41 58 L 12 97 04/12/23 08:30 59 L 22 98 04/12/23 08:00 59 L 18 96 04/12/23 07:30 58 L 16 97 04/12/23 07:00 53 L 17 93 04/12/23 06:33 51 L 14 96 04/12/23 06:33 122/81 04/12/23 08:28 36.9 C 56 L 16 126/71 97 04/12/23 07:06 66 04/12/23 06:30 90 20 122/81 94 04/12/23 05:00 54 L 12 96 04/12/23 04:30 61 16 91 04/12/23 04:27 57 L 12 143/78 H 99 04/12/23 04:49 48 L 04/12/23 03:30 53 L 16 143/78 H 95 04/12/23 03:00 58 L 16 95 04/12/23 02:00 63 17 94 04/12/23 00:48 70 18 131/76 98 04/12/23 00:30 84 14 96 04/12/23 00:00 72 12 97 04/11/23 23:00 77 16 95 04/11/23 22:31 72 20 175/93 H 96 04/11/23 21:28 80 04/11/23 21:42 86 20 176/101 H 96 04/11/23 21:41 99 04/11/23 21:20 36.7 C 88 18 158/98 H 97 O2 Del Method 04/12/23 11:45 Room Air 04/12/23 10:02 Room Air 04/12/23 09:00 04/12/23 08:41 04/12/23 08:41 04/12/23 08:30 04/12/23 08:00 04/12/23 07:30 04/12/23 07:00 04/12/23 06:33 04/12/23 06:33 07/25/23 08:28 Room Air 04/12/23 07:06 04/12/23 06:30 04/12/23 05:00 04/12/23 04:30 04/12/23 04:27 04/12/23 04:49 04/12/23 03:30 04/12/23 03:00 04/12/23 02:00 04/12/23 00:48 04/12/23 00:30 04/12/23 00:00 04/11/23 23:00 04/11/23 22:31 Room Air 04/11/23 21:28 04/11/23 21:42 Room Air 04/11/23 21:41 Room Air 04/11/23 21:20 Room Air Recovery Score Activity: Moves 4 extremities Respiration: Deep Breath/Cough Circulation: +/-20% PreAnes Value Consciousness: Fully Awake Oxygen Saturation: > 92% On Room Air Post Anesthesia Score: 10 Discharge Sedation Level of Care: Fast Track Phase II Post Sedation Plan On clinical assessment, the patient appears to have tolerated the sedation without complications. Patient is recovering as anticipated. Patient will continue to be monitored by nursing and may be discharged when sedation discharge criteria are met per below protocol. Upon Completions of procedure up to 15 minutes continue every 5 minute vital signs and the P.A.R. score; then discharge to a Phase I or Fast Track to Phase II per the following guidelines: * Discharge Patient to appropriate Phase II area if PAR is 8 or greater or return to pre- procedure baseline. The post - procedure orders will be as directed. * If PAR score is less than 8 or not return to pre-procedure baseline then patient will follow Phase I monitoring till PAR is reached for Phase II. The Phase I may be done in procedure room or may call to secure a Phase I area. * If naloxone or flumazenil are used for reversal, hold in Phase I for continued monitoring from when last reversal dose was given for a minimum of 60 minutes or longer pending the nurse and/or physician discretion of patient condition before discharge to Phase II. Please call the Sedation Physician to re-evaluate and complete post-note for discharge to Phase II area. Do NOT discharge from procedure sedation or Phase 1 until post- sedation evaluation note is complete by procedure /sedation MD Sedation Discharge Instructions to be given to the patient at discharge to home. [facility] [place]odes ([place]arges) Indication for Procedure Indication for procedure: nstemi Sedation/Anesthesia Procedure 1: Sedation/Anesthesia: 31474 Mod Sedation by the same physician;Init15 Min Child Age 5 & Up (Initial 15 min, start time 1049) Total Sedation Time (minutes): 47 Procedure 2: Sedation/Anesthesia: 84638 Mod Sedation by the same physician; Ea [id number] Minutes (Additional 32 min, end time 1136) Total Sedation Time (minutes): 47
--- NOTE | 2023-04-12 16:04 | Cardiac Catheterization ---
ACC Data: Core Stacker Cardiac Status Clinical evaluation leading to the procedure CAD Presenation: Non STEMI Anginal Classification: CCS IV Heart Failure: No Cardiogenic Shock within 24 Hours: No Cardiac Arrest within 24 Hours: No Imaging Studies Past 6 Months: No Stress Studies Past 6 Months: No Coronary Anatomy Dominant: Left Left Main (% Stenosis): Normal LAD (% Stenosis): Proximal (Mild 30%), Mid (Diffuse severe 70 to 95%) and Distal (70%) D1 (% Stenosis): Normal D2 (% Stenosis): Ostial (99%) D3 (% Stenosis): Ostial (50%) Circumflex (% Stenosis): Normal OM1 (% Stenosis): Normal OM2 (% Stenosis): Normal OM3 (% Stenosis): Proximal (30%) L PL1 (% Stenosis): Normal L PL2 (% Stenosis): Normal L PDA (% Stenosis): Ostial (30 to 40%) RCA (% Stenosis): Normal Diagnostic Physicians Name: Omero Ambriz MD, PhD Closure Device Percutaneous Entry Location: Radial Closure Device: Radial Band Recommendations: Medical Therapy and/or Counseling and PCI without planned CABG PCI Indication: PCI for high risk Non-HAIDER Lesion Segment Name: Mid and distal LAD Culprit Artery: Yes Stenosis Prior to Rx (%): 70-95 percent mid vessel, 70% distal vessel Chronic Total Occlusion: No Pre-Procedure TEX Flow: 2 Previously Treated Lesion: No Lesion Complexity: High/C Lesion Length (mm): 23 mm mid, 12 mm distal Thrombus Present: Yes Bifurcation Lesion: Yes Guidewire Across Lesion: Yes Intraprocedure Events Significant Disection: No Perforation: No Cardiac Cath Procedure Full Procedure Date April 12, 2023 Pre-Procedure Diagnosis Pre-Procedure Diagnosis: Non STEMI AUC Score AUC Score: 07 Post-Procedure Diagnosis Post-Procedure Diagnosis: Severe CAD Procedure(s) Performed Procedure(s) Performed: Coronary Angiography and Drug Eluting Stent Shoe Repair Supervisor Omero Ambriz MD, PhD Estimated Blood Loss Estimated Blood Loss: 10 mL Medication(s) Medication(s): Fentanyl, Heparin, Lidocaine 1%, Nicardipine, Nitroglycerin and Versed Summary of Findings Brief description: Patient was brought to the cardiac catheterization suite where he was shaved and prepped in a sterile fashion. Sedated using IV Versed and fentanyl. Soft tissues of the right wrist were anesthetized using 2 mils of 1% Xylocaine. The right radial artery was accessed with a modified Seldinger technique and a 6 German radial artery glide sheath was placed. Patient was provided anticoagulation with IV heparin and antispasmodics including nicardipine and nitroglycerin. All catheters were advanced and exchanged over a 0.035 J-tip wire. Left coronary angiography in orthogonal views with a 5 [place] 4 diagnostic catheter. Right coronary angiography in orthogonal views with a 5 [place] 4 diagnostic catheter. Diagnostic catheters were removed. We next proceeded with PCI of the LAD. ACT was checked intermittently and additional heparin provided as needed to maintain therapeutic anticoagulation. A 6 German EBU 3.5 guide catheter was used to engage the left main coronary. A BMW reversal guidewire was advanced and positioned distally in the LAD. A 2.5 x 12 mm trek balloon was used to predilate the more distal lesion at 14 lulú. A 2.5 x 12 mm trek balloon was used to predilate the more proximal lesion at 14 lulú followed by 17 lulú. 2.5 x 15 mm [place] JOSH deployed across the distal lesion at 12 lulú 2.75 x 26 mm Abdiel JOSH deployed across more proximal lesion at 14 lulú Postdilatation of the proximal and mid segment of the distal stent using a 2.5 x 12 mm NC trek at 18 and 15 lulú respectively. Postdilatation of the proximal and mid segment of the more proximal stent using a 3.0 x 15 mm NC trek at 16 lulú. Balloon was removed and poultry boner angiography performed. Guidewire removed and final angiographic evaluation was performed in orthogonal views. Guide catheter was removed. Radial artery sheath was removed. Hemostasis was obtained using a TR band. Patient remained hemodynamically stable and was returned to the recovery area. He was provided oral Brilinta and aspirin. This ended the case. Coronary angiography findings: LMT-large caliber vessel which bifurcates into LAD and left circumflex. Mild luminal irregularities. LAD-large caliber and transapical. Proximal segment with calcification and diffuse mild disease of 30%. Provides a small first diagonal. The mid LAD has mild to moderate calcification with a long eccentric lesion of 70 to 95% stenosis. Flow beyond this lesion is TEX II grade flow. There is a small second diagonal arising at the end of the lesion which has ostial 99% stenosis. The distal LAD vessel has a focal 70% stenosis arising just after the third diagonal. Third diagonal is medium in caliber and branching with mild ostial disease. LCx-this is large caliber and dominant. Travels in the AV groove. The AV groove vessel has scattered mild plaques. Branch vessels include a small to medium caliber OM1 and a small caliber OM 2 each of which have no significant disease. Then, there is a large multi branching OM 3 which has proximal 30% stenosis. There are several small posterolateral branches with mild diffuse disease then the distal AV groove vessel terminates in a large caliber PDA. This segment has 30 to 40% diffuse proximal stenosis. RCA-this is a medium caliber and nondominant without disease. PCI of LAD: 0% residual stenosis post PCI TEX-3 flow post PCI No evidence of dissection or perforation post PCI Summary: 1. Severe multifocal LAD disease is culprit for non-ST elevation OH 2. Successful PCI with implantation of a distal LAD drug-eluting stent as well as a mid LAD drug-eluting stent. 3. Residual coronary artery disease 4. Dual antiplatelet therapy with Brilinta 90 mg p.o. twice daily and aspirin 81 mg p.o. daily for at least 6 months but preferably up to 2 years therapy. 5. Initiate guideline directed medical therapy for secondary prevention of coronary disease to include; low-dose aspirin, high intensity statin therapy, beta-nathalie, plus or minus TREV inhibitor/ARB as tolerated. Hemodynamics Rest Ao:: 106/67 mmHg Final Ao: 125/59 mmHg LV: Not performed Recommendations Recommendations: Medical Therapy and/or Counseling and PCI without planned CABG Radiation Exposure (mGy) Fluoroscopy time 13.4 minutes, 2672 mGy Contrast (mls) 178 mL Anesthesia 2 mg IV Versed, 50 mcg IV fentanyl, start time 1049, end time 1136 Procedural Complication(s) None Disposition Recovery Room\PACU I attest to the content of the Intraoperative Record and any orders documented therein. Any exceptions are noted below. [facility] [place] Card Cath Procedure Codes Cardiac Catheterization Procedure 1: Cardiovascular Cath Procedures: 90763 Coronaries Moderate Sedation Procedure 1: Sedation/Anesthesia: 30196 Mod Sedation by the same physician;Init15 Min Child Age 5 & Up (Initial 15-minute, start time 1049) Procedure 2: Sedation/Anesthesia: 06157 Mod Sedation by the same physician; Ea [id number] Minutes (Additional 32 minutes, end time 1136) Stenting Procedure 1: Cardiovascular Stent Procedures: 15170 Perc transluminal revascularization of acute sub/total occl, aMI PG Care Time/CCT Total # of Minutes Spent Total Time Spent with Patient: Total time spent is greater than 50% in coordination of care (as documented) at patient's floor/unit and/or counseling patient:
[2023-04-12] MEDS: ATORVASTATIN 40 MG TAB PO SCH (16:26)
--- NOTE | 2023-04-12 17:07 | Cardiology Consultation ---
Date of Consultation April 12, 2023 Assessment & Plan (1) NSTEMI (non-ST elevated myocardial infarction): We will review his echo. Severe LAD disease is culprit for chest pain and elevated troponin. He has undergone diagnostic coronary angiography and PCI with implantation of 2 drug-eluting stents in the LAD. Good angiographic results. He will remain on dual antiplatelet therapy with aspirin 81 mg daily and Brilinta 90 mg p.o. twice daily for up to a year. We will also initiate guideline directed medical therapy as below. I do recommend cardiac rehab after discharge. (2) Atherosclerosis of coronary artery: Severe coronary disease treated with stents. Residual disease is mild. Guideline directed medical therapy will include lifelong low-dose aspirin, high intensity statin therapy, beta-nathalie, plus or minus TREV inhibitor/ARB as tolerated. (3) Hypercholesteremia: Patient is high risk (CAD). High intensity statin therapy recommended. Now on a atorvastatin 40 mg daily. Target LDL reduction will be greater than or equal to 50% of untreated baseline LDL. (4) Primary hypertension: Patient was previously on amlodipine. Would recommend beta-nathalie plus or minus TREV inhibitor/ARB in its place. Titrate to achieve systolic blood pressure less than 140 mmHg. History of Present Illness Reason for Consultation: Elevated troponin, chest pain Attending Physician: Karuna Hooper MD History of Present Illness Pleasant 67-year-old gentleman who denies history of diabetes, but has a history of hypertension and dyslipidemia presents with over 1 week history of stuttering chest pressure and shortness of breath. Recent nephrolithiasis. On the day of presentation he had a protracted episode including profound diaphoresis in addition to his chest pressure. He tells me that initially he felt his chest discomfort over the past week was indigestion. His symptoms have occurred at rest and with exertion. Evaluation in the emergency department did not show ST elevations but the patient did have elevated troponin. I was asked to see him regarding cardiac catheterization. Patient has had no syncope, near syncope, orthopnea, PND, racing heartbeat, palpitations, or edema. He has had some diminished energy levels. Has a strong family history with his father at age 56. Denies history of tobacco abuse. Given the patient's presentation and significant anginal symptoms which seem to be somewhat unstable I recommended definitive evaluation by coronary angiography plus or minus PCI as indicated. Patient underwent cardiac catheterization revealing severe multifocal LAD disease. This was treated with a drug-eluting stent distally and a long drug-eluting stent in the mid segment. Good angiographic results and he tolerated the procedure well. He is now admitted for further work-up and management. Allergies Allergy/AdvReac Type Severity Reaction Status Date / Time No Known Allergies Allergy Verified 04/11/23 22:11 Home Medications Medication Instructions Recorded Confirmed Type atorvastatin 10 mg tablet 10 mg PO QPM #90 tabs 02/02/23 04/11/23 Rx amlodipine 5 mg tablet 5 mg PO HS 03/28/23 04/11/23 History phenazopyridine 200 mg tablet 200 mg PO Q8H PRN pain #10 tabs 04/04/23 04/11/23 Rx (Pyridium) tamsulosin 0.4 mg capsule 0.4 mg PO HS #30 caps 04/04/23 04/11/23 Rx Patient History Medical History Atherosclerosis of coronary artery on CT 02/2023 Elevated lipoprotein(a) Hepatic steatosis History of kidney stones Hypercholesteremia Left ear hearing loss Obesity (BMI 30.0-34.9) Primary hypertension Surgical History History of colonoscopy with polypectomy last 05/2021 History of ear surgery left History of lithotripsy Family History Father Myocardial infarction, Onset Age: 55 Other Colorectal cancer No family history of adverse response to anesthesia Denies family history of Ovarian cancer Prostate cancer Breast cancer Social History Smoking Status: Never smoker Second Hand Exposure: No; Do You Dip or Chew Tobacco: Yes (chews (advised NPO)); Hx Alcohol Use: Yes Alcohol type: wine Hx Substance Use: No Preferred Language: Israeli Communication Ability: Effective Visual Impairment: No Limitations Hearing Ability: Normal Tax Compliance Agent Required: No Beliefs That Will Affect Care: None Current Living Situation: Spouse Other Information That Helps Us Care for You: No Feels Safe at Home: Yes Safety Concerns: Feels Safe At This Time Seatbelt Use: always Assistive Devices: Glasses Review of Systems Review of Systems: Negative except as per HPI Physical Exam Constitutional: WD/WN, vitals as above Eyes: Extraocular muscles intact. Sclera are anicteric. ENMT: Oral mucosa is pink moist and intact Neck: Thick and short. No JVD or bruits appreciated Respiratory: Clear to auscultation bilaterally. No wheezing, rhonchi, or rales. Cardiovascular: Regular rate and rhythm. S4 gallop. I do not appreciate any rubs or murmurs. No edema. Musculoskeletal: no cyanosis or clubbing, extremities motor strength 5/5 Neurologic: Diminished hearing, cognition intact, speech is fluent. No focal motor deficits. No tremor. Psychiatric: A+Ox3, euthymic affect Results & Data Vital Signs (Past 12 Hours) Vital Signs Temp Pulse Pulse Resp BP BP Pulse Ox 04/12/23 14:15 51 L 20 143/86 H 98 04/12/23 14:00 52 L 20 124/73 97 04/12/23 13:45 62 20 138/77 98 04/12/23 13:30 58 L 20 135/80 99 04/12/23 13:15 53 L 20 131/75 98 04/12/23 13:00 55 L 20 147/80 H 98 04/12/23 12:45 61 20 130/81 98 04/12/23 12:30 67 20 135/80 99 04/12/23 12:15 54 L 20 124/80 97 04/12/23 12:00 67 20 141/80 H 98 04/12/23 11:45 64 20 134/79 99 04/12/23 10:02 51 L 18 134/79 99 04/12/23 09:00 52 L 15 98 04/12/23 08:41 126/71 04/12/23 08:41 58 L 12 97 04/12/23 08:30 59 L 22 98 04/12/23 08:00 59 L 18 96 04/12/23 07:30 58 L 16 97 04/12/23 07:00 53 L 17 93 04/12/23 06:33 51 L 14 96 04/12/23 06:33 122/81 04/12/23 08:28 36.9 C 56 L 16 126/71 97 04/12/23 07:06 66 04/12/23 06:30 90 20 122/81 94 O2 Del Method 04/12/23 14:15 Room Air 04/12/23 14:00 Room Air 04/12/23 13:45 Room Air 04/12/23 13:30 Room Air 04/12/23 13:15 Room Air 04/12/23 13:00 Room Air 04/12/23 12:45 Room Air 04/12/23 12:30 Room Air 04/12/23 12:15 Room Air 04/12/23 12:00 Room Air 04/12/23 11:45 Room Air 04/12/23 10:02 Room Air 04/12/23 09:00 04/12/23 08:41 04/12/23 08:41 04/12/23 08:30 04/12/23 08:00 04/12/23 07:30 04/12/23 07:00 04/12/23 06:33 04/12/23 06:33 04/12/23 08:28 Room Air 04/12/23 07:06 04/12/23 06:30 PG Care Time/CCT Total # of Minutes Spent Total Time Spent with Patient: Total time spent is greater than 50% in coordination of care (as documented) at patient's floor/unit and/or counseling patient: Coding Level of Care Code 27165 OFFICE CONSULT LVL Diagnoses NSTEMI (non-ST elevated myocardial infarction) I21.4 Atherosclerosis of coronary artery I25.10 Hypercholesteremia E78.00 Primary hypertension I10
[2023-04-12] MEDS ORDERED: TAMSULOSIN HCL 0.4 MG CAP PO SCH (21:00)
[2023-04-12] MEDS ORDERED: ATORVASTATIN 40 MG TAB PO SCH (21:00)
[2023-04-12] MEDS: TICAGRELOR 90 MG TAB PO SCH (23:25)
[2023-04-13] MEDS: NITROGLYCERIN 2% OINTMENT 30GM TUBE EXT SCH ×2 (05:38)
[2023-04-13 06:18] LABS: Basophils # (auto) 0.07 K/uL (0-0.2); Eosinophils # (auto) 0.12 K/uL (0-0.50); Eosinophils % (auto) 1.6 %; Hematocrit (blood only) 39.8 % (42.0-52.0); Hemoglobin 13.7 g/dl (14.0-18.0); Immature Granulocytes # (auto) 0.03 K/uL (0.01-0.20); Immature Granulocytes % (auto) 0.4 %; Lymphocytes # (auto) 1.21 K/uL (1.2-3.4); Lymphocytes % (auto) 16.4 %; Mean Corpuscular Hemoglobin 29.5 pg (25.0-34.0); Mean Corpuscular Hgb Conc 34.4 g/dL (32.0-36.0); Mean Corpuscular Volume 85.8 fL (80.0-100.0); Mean Platelet Volume 9.9 fL (9.4-12.4); Monocytes # (auto) 0.76 K/uL (0.11-0.59); Monocytes % (auto) 10.3 %; Neutrophils # (auto) 5.17 K/uL (1.40-6.50); Neutrophils % (auto) 70.3 %; Platelet Count 222 K/uL (130-400); RDW Standard Deviation 40.1 fL (36.4-46.3); Red Blood Count 4.64 M/uL (4.70-6.10); White Blood Count 7.36 K/ul (4.8-10.8)
[2023-04-13 06:40] LABS: BUN Creatinine Ratio 15.2 (10-20); Creatinine Clr Calc Pharmacy 74.8 ml/min; Est GFR (African American) 78.9 ml/min; Est GFR (Non-African American) 68.1 ml/min; Magnesium 2.1 mg/dl (1.7-2.4); Phosphorus 3.5 mg/dl (2.5-4.9); Potassium 4.4 mmol/L (3.5-5.1)
[2023-04-13] MEDS: TICAGRELOR 90 MG TAB PO SCH (08:55)
[2023-04-13] MEDS: ATORVASTATIN 40 MG TAB PO SCH (08:56)
[2023-04-13] MEDS ORDERED: ASPIRIN 81 MG ECTAB PO SCH (09:00)
[2023-04-13] MEDS ORDERED: METOPROLOL SUCC 25MG EXT REL TAB PO SCH (09:00)
--- NOTE | 2023-04-13 17:53 | Discharge Summary ---
Date of Service April 13, 2023 Admission HPI Per Admitting Provider Bernabe is a 67-year-old male with a past medical history of hyperlipidemia, hypertension, BMI 31.8, recent cystoscopy and laser destruction of left ureteral stone with basket retrieval 04/04/2023, early family history of CAD who presented to the ER for intermittent and recurrent central chest pressure with clamminess/sweating. Patient has had intermittent chest pain over the last several days, this afternoon pain significantly worsened with a large amount of sweating which prompted him to be seen in the ER. On ER evaluation discomfort 3/10 without back pain or lightheadedness/dizziness. Initial EKG with inferior lateral ST depressions which improved following nitro. Initial troponin is elevated at 589. Chest pain is improved following nitro and morphine administration. Jose reports he had kidney stones taken out last tuesday. He reports he went through a bunch of tests beforehand and 'felt OK'. Reports he has had kideny stones before 'but this one hurt and knocked the shit out of me.' After the last 3-4 days has had intermittent substernal chest pain. Went away with rest. Not really sure why the pain would come on. Did not note any association with exercise or going up stairs, seemed to come and go on it sown. No shortness of breath with pain, but did have sweating episodes with it tonight (no sweating with it prior). Today they were sitting at the [employer] and after half a glass of wine has bad pain in his chest and was very sweaty/clammy. Given worsened symptoms and sweating, and early family history, came to the ER for evaluation. Prior to this week was able to to walk and go up stairs without chest pain. No anginal symptoms up until this past week. At tiem of bedside evaluation no shortness of breath. chest pain 'just almost completely gone.' No history of heart disease. No hx DM. Father with CAD. Passed at age 56, started having heart problems ~age 53. No history of DM, was a heavy smoker. No other FHx heart disease Medical History: Reviewed Medications: Reviewed Surgical History: Reviewed Family history: Reviewed Allergies: Reviewed Social History: Chews tobacco, 1 can per 2 days. No cigarette use. Etoh 1-2 glass a night at least. Went ETOH free for a few days last week before the kidney stone, no withdrawal Code Status: Full Admission Exam Per Admitting Provider General: A&Ox3. NAD. Cooperative. HEENT: Atraumatic, normocephalic. Vision/hearing intact. PERLAA. Pulm: CTAB A&P. -wheezes, -rales, -rhonchi. Symmetrical chest rise. No increased work of breathing. No respiratory distress. No CP on palpation. Cardiac: RRR, -mrg. Radial pulses intact and symmetrical. no JVD. Abdominal: Nontender, nondistended, soft. BS present. Ext: No edema. Warm, dry. Sensation/strength intact in all 4 extremities and symmetrical. Principal Diagnosis NSTEMI Discharge Exam Constitutional WD/WN, vitals as above not ill appearing Respiratory normal respiratory effort, lungs clear to auscultation Cardiovascular RRR, no murmur, no edema Vessels: radial pulses present Skin no rashes, warm and dry Neurologic no focal motor deficits AOx4 Discharge Data Allergies Allergy/AdvReac Type Severity Reaction Status Date / Time No Known Allergies Allergy Verified 04/11/23 22:11 Consultations 04/12/23 00:37 ED Decision to Admit Stat 04/12/23 00:46 Consult Cardiology Routine Procedures Performed Operation Date: 04/12/23 10:15 Actual Procedures p Cineradiography w/Routine Exam - Omero Ambriz MD, PhD p Cath, Coronaries ONLY (no LV) - Omero Ambriz MD, PhD Ordered Studies 04/12/23 10:01 CL Cath Imgs for PACS use only Stat Hospital Course (1) NSTEMI (non-ST elevated myocardial infarction): Bernabe is a 67-year-old male with a past medical history of hyperlipidemia, hypertension, BMI 31.8, recent cystoscopy and laser destruction of left ureteral stone with basket retrieval 04/04/2023, early family history of CAD who presented to the ER for intermittent and recurrent central chest pressure with clamminess/sweating. Admitted for NSTEMI. NSTEMI/CAD -10 pain with intermittent angina in the week prior to admission. In ER, pain was partially relieved with nitro and morphine. -EKG initially showed inferior/anterolateral depressions, improved with nitro and fluids. -Initial troponin was 589.8. Serial troponins 1481.6, 5702.6 -Pt was given aspirin 324 mg x 1 while in ER. Continued on Nitropaste. Started on heparin. -Echocardiogram ordered, significant for: Normal LV size, systolic function. EF = 55-60%. Small area of mid and distal anterior LV wall akinesis. -Cardiology consulted: Severe multifocal LAD disease culprit for non-ST elevation PR Successful PCI with implantation of a distal LAD drug-eluting stent as well as a mid LAD drug-eluting stent. - Discharged on: * Atorvastatin 40 mg * Aspirin 81 mg every morning * Metoprolol succinate 25 mg every morning * Nitro-Derm patch every 6 hours; SL nitroglycerin 0.4 mg Q5M as needed * Brilinta 90 mg p.o. twice daily HTN * Home amlodipine stopped. * Discharged home on Metoprolol Hepatic steatosis -Fib 4 score was: 1.71 points (advanced fibrosis excluded; Ama stage II-III) * LFT's, transaminases were at goal. - Manage outpatient with lifestyle changes (limit alcohol intake, active weight loss efforts) Ureterolithiasis -Improved following lithotripsy/basket retrieval 04/04/2023 * Follow up outpatient (2) Atherosclerosis of coronary artery: (3) Hepatic steatosis: (4) Hypercholesteremia: (5) Primary hypertension: (6) Obesity (BMI 30.0-34.9): Total Time Total Time Spent Total Time Spent (In Minutes): see attending attestation Discharge Plan Discharge Items Patient Disposition: Home - Self-Care Reason For Visit: NSTEMI Discharge Diagnosis: NSTEMI Activity: Per Instructions section Non-emergency contact: Primary Care Provider and Cutting Machine Tender Decorative Call non-emergency contact if: you have any medication questions, your symptoms worsen, your pain is not controlled, your pain is unusual for you and your pain is concerning for you Follow-up/Referrals: Omero Ambriz MD, PhD [Physician] - 04/21/23 9:00 am (Follow up scheduled on 04/21/23 @ [address] Ambriz) Kathy Beach MD [Primary Care Provider] - 04/18/23 11:00 am (Follow up schedule on 04/18/23 @ 11 with Betty Santos) Diet: Heart Healthy Add Attending Provider Instructions: Dear Bernabe, You came to the hospital because of worsening chest pain with exertion over the last few days. You were admitted to the hospital after initial labs in the emergency department suggested that you had a type of myocardial infarction called an NSTEMI. An NSTEMI is a form of myocardial infarction (compromised blood supply to your heart tissue) caused by significant narrowing or near total occlusion of 1 or more of your coronary arteries, which supply blood to your heart muscle. We gave you medications to relieve this occlusion, and consulted our cardiology specialists for a more focused evaluation. The client engagement specialist then performed a procedure called a percutaneous coronary intervention (PCI), in order to directly examine the patency of your coronary arteries. This procedure revealed that you had significant narrowing of multiple portions of your left anterior descending (LAD) artery. These stenoses were resolved with placement of a drug-eluting stent (JOSH) in your LAD. You were kept overnight for postprocedural supervision, which you tolerated well. As you continued to recover well this morning, we believe you are ready to be discharged home. 1. We sent a medication called Brilinta to your pharmacy. Please take Brilinta 90 mg twice daily for at least 6 months. Your client engagement specialist will decide at that point whether to continue taking it for an additional length of time. 2. We sent a medication called aspirin to your pharmacy. Please take aspirin 81 mg once daily for at least 6 months. Your client engagement specialist will also decide at that point whether to continue taking it at follow-up for an additional length of time. 3. We changed your atorvastatin 10 mg to atorvastatin 40 mg. We have also sent this medication to your pharmacy. Please continue to take atorvastatin 40 mg once daily, unless otherwise instructed to by your PCP or your client engagement specialist. 4. We sent a medication called metoprolol succinate, or Toprol to your pharmacy. Please take metoprolol succinate 25 mg once daily, unless otherwise instructed to by your PCP or client engagement specialist. 5. You have been scheduled for follow-up appointment with your PCP, Dr. Kathy Beach. If you are unable to make that appointment, please contact her office at [phone] to reschedule. 6. The cardiology clinic will contact you to schedule your follow-up appointment with Dr. Ambriz. If you do not hear from his office in the next 2- 3 business days, please call the cardiology office at [phone]. It has been a pleasure to care for you at . If you have any questions or concerns about your care, please contact us at [phone]. Addtl Mixing Technician Provider Instructions: ACTIVITY RECOMMENDATIONS: It is common to feel weak and fatigue for a few days. * Do not drive or operate any motorized equipment for the next three days. * Limit stair usage (2 or 3 trips a day only) for the next three days. * Do not lift anything heavier than 10 pounds for the next three days. * Do not engage in vigorous exercise or any sports for the next five days. * You may shower the day after your procedure, but do not immerse the area for three days. Cleanse the site gently with soap and water. SPECIAL CARE INSTRUCTIONS: * You may replace the pressure dressing or band-aid the morning after the procedure. * After your procedure, it is normal to have a small bruise or small lump at the site. Examine your site daily for any change in the bruise or lump, redness, swelling, drainage or numbness. Notify your doctor if any change. BLEEDING: * If there is a small amount of bleeding at the site, lie down and apply firm pressure with a clean cloth for ten minutes. When the bleeding stops, lie quietly keeping the procedure limb straight for six hours. Notify your doctor as soon as possible. * If the bleeding does not stop after ten minutes or if there is a large amount of bleeding or spurting, call 911 immediately. Continue to lie down and hold firm pressure until help arrives. SKIN IRRITATION: * You may experience some redness and/or swelling in the area where radiation was administered. If any skin irritation occurs, please contact your family physician. FOLLOW UP VISIT: Keep any scheduled doctor appointments. Pending Studies at Discharge: No Stand-Alone Forms: My [facility], Smoking Cessation Medications and DC Order Prescriptions: New atorvastatin 40 mg Tablet 40 mg PO QAM Qty: 90 3RF nitroglycerin [Nitrostat] 0.4 mg Tablet, Sublingual 0.4 mg sublingual Q5M PRN (Reason: chest pain) Qty: 25 3RF metoprolol succinate 25 mg Tablet Extended Release 24 Hr 25 mg PO QAM Qty: 90 3RF Brilinta 90 mg Tablet 90 mg PO BID Qty: 60 11RF aspirin [Adult Low Dose Aspirin] 81 mg tablet,delayed release (DR/EC) 81 mg PO DAILY Qty: 90 3RF Continued phenazopyridine [Pyridium] 200 mg tablet 200 mg PO Q8H PRN (Reason: pain) Qty: 10 0RF tamsulosin 0.4 mg capsule 0.4 mg PO HS Qty: 30 0RF Discontinued atorvastatin 10 mg tablet 10 mg PO QPM Qty: 90 3RF amlodipine 5 mg tablet 5 mg PO HS Discharge Orders: Discharge Order (Routine); Ordered 04/13/23 Ordered By: Isac Pham Admission Data Admit Date/Time: 04/11/23 23:27 Attending Provider: Karuna Hooper Admit Provider: Benito Pettit Primary Care Provider: Kathy Beach Other Providers: Raffy Roblero ; Benito Pettit Other Interventions: Discharge Summary Assessment (RN) Last Done: 04/13/23 12:10 Supervising Physician Co-Signing Physician Notes Resident Physician Supervision Note: I independently interviewed and examined the patient and verified the contreras history and physical, reviewed labs and image studies and agree with resident findings and care plan. Resident Activity Tracking Resident Involvement: Resident Care Provided Care Provided: Adult Hospital Medicine
== END 2023-04-13 12:32 | disposition home or self-care (01) | DRG 247 ==
LOC: ED 21:16 → EDINP 23:27 → SUATTDRO 23:27 → EDINP 04-12 10:14 → 2E 04-12 14:45
PROC: CLB.CCO (2023-04-12 10:15)